=== PATIENT | female | born 1985 | race Caucasian/White ===

== ENCOUNTER 2016-11-09 21:40 | Emergency (ER) | payer OTHER ==
[2016-11-09] MEDS ORDERED: HYDROMORPHONE HCL 0.5 MG/0.5 ML SYRINGE ONE (21:57)
[2016-11-09] MEDS ORDERED: ONDANSETRON 4 MG/2ML 2 ML VIAL ONE (21:57)
[2016-11-09 22:10] LABS: ABSOLUTE NEUTROPHIL COUNT 14.4 K/mm3 (1.8-7.7); BASO # 0.1 K/mm3 (0.0-0.2); BASO % 0.3 % (0.2-1.0); HEMATOCRIT 49.9 % (37.0-47.0); HEMOGLOBIN 16.1 gm/l (12.0-16.0); IMM NEUT # 0.1 K/mm3 (0-0.2); IMM NEUT% 0.4 % (0-1); LYMPH # 1.2 (1.0-4.8); LYMPH % 7.6 % (15-45); MEAN CELL VOLUME 82.5 fl (81.0-99.0); MEAN CORPUSCULAR HEMOGLOBIN 26.6 pg (27.0-31.0); MEAN CORPUSCULAR HGB CONC 32.3 g/dl (33.0-37.0); MEAN PLATELET VOLUME 10.6 fl (7.4-10.4); MONO # 0.5 (0.0-0.8); MONO % 3.1 % (4-12); NEUT % 88.6 % (43-75); PLATELET COUNT 428 K/mm3 (130-400); RED CELL DISTRIBUTION WIDTH 14.9 % (11.5-14.5)
[2016-11-09 22:25] LABS: ALB/GLOB RATIO 1.6 (>1.0); ALBUMIN 4.5 gm/dL (3.5-5.7); CALCIUM 10.1 mg/dL (8.6-10.3)
[2016-11-09] MEDS ORDERED: SODIUM CHLORIDE 0.9% 1,000 ML ONE (22:40)
[2016-11-09] MEDS ORDERED: MAALOX/LIDO2%VISC/SIMETHICONE 40 ML BOT ONE (23:10)
[2016-11-09 23:12] LABS: SPECIFIC GRAVITY 1.015 (1.001-1.030); URINE BILIRUBIN NEGATIVE (NEGATIVE); URINE BLOOD NEGATIVE (NEGATIVE); URINE GLUCOSE (UA) NEGATIVE (NEGATIVE); URINE LEUKOCYTE ESTERASE TRACE (NEGATIVE); URINE NITRITE NEGATIVE (NEGATIVE); URINE PROTEIN TRACE (NEGATIVE); URINE UROBILINOGEN NORMAL (0-1 mg/dl)
[2016-11-09 23:14] LABS: HCG,QUALITATIVE URINE NEGATIVE
[2016-11-09 23:17] LABS: URINE APPEARANCE TURBID; URINE COLOR DARK YELLOW
[2016-11-09 23:26] LABS: URINE AMORPHOUS SEDIMENT MODERATE; URINE BACTERIA RARE; URINE EPITHELIAL CELLS 0-2 /hpf; URINE RBC 0 /hpf
--- NOTE | 2016-11-10 09:25 | US ---
ABDOMINAL-LIMITED: 11/09/2016 10:36 PM CLINICAL HISTORY: Right upper quadrant and epigastric pain with nausea and vomiting since this morning.. STUDY: Limited right upper quadrant ultrasound COMPARISON: none FINDINGS: Gallbladder: Wall thickness: Normal Cholelithiasis: none Pericholecystic Fluid: none Sonographic Mercado's Sign: Equivocal given patient pain medication administration. Bile ducts: Common bile duct measures 2 mm. Limited visualized Liver and RUQ structures: normal IMPRESSION: No evidence of cholelithiasis or acute cholecystitis as above. Preliminary report was provided by [facility] at approximately 2319 hours on 11/09/2016.
== END 2016-11-10 00:10 | disposition home or self-care (01) ==
LOC: ED 21:40
DX: R10.13 Epigastric pain (principal); K29.70 Gastritis, unspecified, without bleeding; R11.10 Vomiting, unspecified
CPT/HCPCS: 83690; 81025; 85025; 87086; 80053; 81001; 76705; 96375; 99284 ×2; 96374; 96361; A9270; J2405; J7030; J1170